=== PATIENT | male | born 1985 | race Caucasian/White ===

== ENCOUNTER 2017-07-14 18:41 | Emergency (ER) | payer OTHER ==
[2017-07-14 18:41] VITALS: BMI 24.3
[2017-07-14 18:49] VITALS: BP 125/73; PULSE 90; RESP 16; TEMP 98.2; O2SAT 99
[2017-07-14] MEDS ORDERED: Bacitracin 500 Units/gm Oint Foilpak UD TOP ONE (19:17)
--- NOTE | 2017-07-14 19:32 | C.PDOC ---
History Of Present Illness 31 year old male, with no past medical history, who presents to the emergency department complaining of left hand injury onset prior to arrival. Patient states he was at work when a window fell on top of his hand. Laceration noted to his left hand with swelling. He denies any other medical complaints. PMD: None provided. Time Seen by Provider: 07/14/17 19:09 Chief Complaint (Nursing): Abnormal Skin Integrity History Per: Patient History/Exam Limitations: no limitations, language barrier (translated by enzoibe ) Onset/Duration Of Symptoms: Days (x1) Current Symptoms Are (Timing): Still Present Location Of Injury: Left: Hand, Anterior: Hand Quality Of Symptoms: Painful Severity: Mild Pain Scale Rating Of: 8 Past Medical History Reviewed: Historical Data, Nursing Documentation, Vital Signs Vital Signs: Last Vital Signs Temp 98.2 F 07/14/17 18:46 Pulse 90 07/14/17 18:46 Resp 16 07/14/17 18:46 BP 125/73 07/14/17 18:46 Pulse Ox 99 07/15/17 06:48 - Medical History PMH: Seizures Denies: Anemia, Diabetes, Hepatitis, HIV, HTN, Chronic Kidney Disease, Sexually Transmitted Disease Surgical History: No Surg Hx - [facility] Procedures RHINOSCOPY (04/10/15) VACCINATION NEC (04/10/15) Family History: States: Unknown Family Hx - Social History Hx Tobacco Use: No Hx Alcohol Use: No Hx Substance Use: No (unknown) - Immunization History Hx Tetanus Toxoid Vaccination: No Hx Influenza Vaccination: No Hx Pneumococcal Vaccination: No Review Of Systems Except As Marked, All Systems Reviewed And Found Negative. Musculoskeletal: Positive for: Other (left hand laceration) Physical Exam - Physical Exam Appears: Well, Non-toxic Skin: Normal Color, Warm, Dry Head: Atraumatic, Normacephalic Eye(s): bilateral: Normal Inspection, EOMI Neck: Normal, Normal ROM, Supple Respiratory: Normal Breath Sounds, No Accessory Muscle Use Extremity: Normal ROM, No Deformity, Swelling, Other (1.5 cm laceration to dorsal left hand.) Neurological/Psych: Oriented x3, Normal Speech ED Course And Treatment O2 Sat by Pulse Oximetry: 99 (RA) Pulse Ox Interpretation: Normal Laceration - Laceration Repair hand Wound Length (In cm): 1 Description Of Wound: Linear Wound Cleansed With: Betadine, Sterile Saline Anesthesia: Lidocaine 2%, With Epi Wound Examination: Irrigated With Saline, No FB With Wound Exploration, No Tendon Injury With Wound Exploration Wound Closure: Suture (four) Suture Technique And Material Used: Nylon (4-0) Wound Complexity: Simple Medical Decision Making Medical Decision Making: Initial Impression: left hand laceration Initial Plan: --Bacitracin 1 ea TOP --Lidocaine 1% epi 30 ml IJ --Hand left 3 views routine [RAD] --reevaluation -Patient was offered an X-ray but he refused. 19:45 -Patient agreed to have an X-Ray of hand done. xray is negative for fractures or foeirgn bodies. The patient was instructed the risk that there may still be a foreign body in the wound ever after xray and exploration of the wound. Disposition - Disposition Referrals: [facility] at [facility] [Outside] Disposition: HOME/ ROUTINE Disposition Time: 20:25 Condition: GOOD Additional Instructions: Mantenga la joyce cubierto por 2 hodgson. Luego, limpie dos veces al da con agua y jabn solamente, luego aplique crema. Suturas que se eliminarn en 10 hodgson Prescriptions: Bacitracin Ointment [Bacitracin] 30 gm TOP BID #1 tube Instructions: Laceration (ED) Forms: [facility] (Nepalese), Work Excuse - Clinical Impression Clinical Impression: Hand laceration - Scribe Statement Abdi Mcguire All medical record entries made by the Scribe were at my direction and personally dictated by me. I have reviewed the chart and agree that the record accurately reflects my personal performance of the history, physical exam, medical decision making, and the department course for this patient. I have also personally directed, reviewed, and agree with the discharge instructions and disposition.
[2017-07-14] MEDS ORDERED: Lidocaine 1%/Epinephrine 1:100000 30 ml vial IJ ONE (19:33)
[2017-07-14] MEDS ORDERED: Bacitracin 500 Units/gm Oint Foilpak UD ONE (19:37)
[2017-07-14] MEDS ORDERED: Lidocaine 2% w Epi 1:100,000 Inj IJ ONE (19:37)
[2017-07-14] MEDS ORDERED: Tetanus/Diphtheria Toxoids 0.5 ml Syringe IM ONE (19:38)
--- NOTE | 2017-07-15 09:33 | RAD ---
PROCEDURE: Left Hand Radiographs. HISTORY: injury, lac to dorsal left hand COMPARISON: None. FINDINGS: BONES: Bone alignment and mineralization are normal. There is no acute displaced fracture or bone destruction. JOINTS: Normal. No osteoarthritic changes. SOFT TISSUES: Normal. No radiopaque foreign body. OTHER FINDINGS: None. IMPRESSION: No acute fracture or dislocation. No radiopaque foreign body.
== END 2017-07-14 20:51 | disposition home or self-care (01) ==
LOC: C.ER 18:41
DX: S61.412A Laceration without foreign body of left hand, initial encounter (principal); W20.8XXA Other cause of strike by thrown, projected or falling object, initial encounter; Y92.89 Other specified places as the place of occurrence of the external cause; Y99.0 Civilian activity done for income or pay; Z23 Encounter for immunization

== ENCOUNTER 2017-10-30 10:54 | Emergency (ER) | payer MEDICAID, OTHER ==
[2017-10-30 10:58] VITALS: BMI 26.2
[2017-10-30 11:01] VITALS: BP 138/73; PULSE 73; RESP 18; TEMP 97.3; O2SAT 100
--- NOTE | 2017-10-30 11:36 | C.PDOC ---
History Of Present Illness 32 y/o male c/o bilateral wrist pain for approx 3 weeks, worse after working all day. pt sts pain is on ulnar aspect of wrists, worse with flexion and ulnar deviation. no trauma. pt works moving boxes all day. denies any numbness or tingling. Time Seen by Provider: 10/30/17 11:19 Chief Complaint (Nursing): Finger,Hand,&Wrist History Per: Patient History/Exam Limitations: no limitations Onset/Duration Of Symptoms: Days (20) Current Symptoms Are (Timing): Still Present Quality: "Pain" Severity: Moderate Exacerbating Factor(s): Strenuous Use Of Affected Area, Movement, Worse At Night Past Medical History Reviewed: Historical Data, Nursing Documentation, Vital Signs Vital Signs: Last Vital Signs Temp 97.3 F L 10/30/17 10:58 Pulse 73 10/30/17 10:58 Resp 18 10/30/17 10:58 BP 138/73 10/30/17 10:58 Pulse Ox 100 11/02/17 18:34 - Medical History PMH: Seizures Denies: Anemia, Diabetes, Hepatitis, HIV, HTN, Chronic Kidney Disease, Sexually Transmitted Disease - [facility] Procedures RHINOSCOPY (04/10/15) VACCINATION NEC (04/10/15) Family History: States: Unknown Family Hx - Social History Hx Tobacco Use: No Hx Alcohol Use: No Hx Substance Use: No (unknown) - Immunization History Hx Tetanus Toxoid Vaccination: No Hx Influenza Vaccination: No Hx Pneumococcal Vaccination: No Review Of Systems Constitutional: Negative for: Fever, Chills Musculoskeletal: Positive for: Hand Pain (bilateral wrist) Skin: Negative for: Rash, Bruising Neurological: Negative for: Weakness, Numbness Physical Exam - Physical Exam Appears: Non-toxic, No Acute Distress Skin: Warm, Dry Extremity: Normal ROM, Tenderness (bilateral medial aspect of wrists), Capillary Refill (less than 2 seconds bilaterally), No Swelling, Other (no medial anterior wrist tenderness bilaterally, neg tinel sign) Extremity: Bilateral: Atraumatic Pulses: Left Radial: Normal, Right Radial: Normal Neurological/Psych: Oriented x3, Normal Speech, Normal Cognition, Normal Motor ED Course And Treatment O2 Sat by Pulse Oximetry: 100 Medical Decision Making Medical Decision Making: pt with bilateral wrist pain, does many repetitive motions at work; d/c with demarco bandages on wrists, Disposition Counseled Patient/Family Regarding: Diagnosis, Need For Followup, Rx Given - Disposition Referrals: Fernando Avila MD [Staff Provider] - Disposition: HOME/ ROUTINE Disposition Time: 11:44 Condition: GOOD Additional Instructions: Por favor, use vendas as en las muecas para apoyo. [place] ibuprofeno para el dolor. Seguimiento con un especialista en la mano o en fara clnica mdica. Please wear demarco bandages on wrists for support. Take ibuprofen for pain. Follow up with hand specialist or in medical clinic. Prescriptions: Ibuprofen [Motrin] 600 mg PO TID #30 tab Forms: Gen Discharge Inst Australian, [employer] (Australian) Print Language: AMERICAN - Clinical Impression Clinical Impression: Bilateral wrist pain
== END 2017-10-30 11:59 | disposition home or self-care (01) ==
LOC: C.ER 10:54
DX: M25.532 Pain in left wrist (principal); M25.531 Pain in right wrist